=== PATIENT | female | born 1990 | race Caucasian/White ===

== ENCOUNTER 2017-07-16 12:18 | Outpatient (CLI) | payer SELFPAY ==
[~2017-07-16] VITALS: Ht 157.5 cm; Wt 73.7 kg
[2017-07-16 12:58] VITALS: Ht 157.5 cm; Wt 73.7 kg
[2017-07-16] MEDS ORDERED: PREN1.4T2 PO (12:59)
[2017-07-16 14:17] LABS: BASOPHILS % 0.5 % (0.0-2.0); EOSINOPHILS # 0.7 10^3/ul (0.0-0.5); EOSINOPHILS % 7.8 % (0.0-7.0); HEMATOCRIT 39.1 % (37.0-47.0); HEMOGLOBIN 13.4 g/dl (12.0-16.0); LYMPHOCYTES # 1.6 10^3/ul (0.8-2.9); LYMPHOCYTES % 18.2 % (15.0-51.0); MEAN CORPUSCULAR HEMOGLOBIN 29.1 pg (29.0-33.0); MEAN CORPUSCULAR HGB CONC 34.3 g/dl (32.0-37.0); MEAN PLATELET VOLUME 11.3 fl (7.4-10.4); MONOCYTE # 0.5 10^3/ul (0.3-0.9); MONOCYTES % 5.4 % (0.0-11.0); NEUTROPHILS % 67.4 % (39.0-77.0); PLATELET COUNT 146 10^3/UL (140-415); RED CELL DISTRIBUTION WIDTH 14.8 % (11.5-14.5); WHITE BLOOD COUNT 8.9 10^3/ul (4.8-10.8)
[2017-07-16 14:33] LABS: INR 0.85; PROTIME 11.7 Sec (11.9-14.9); PT RATIO 0.9
[2017-07-16 14:34] LABS: PARTIAL THROMBOPLASTIN TIME 26.7 Sec (25.0-35.0)
[2017-07-16 14:37] LABS: ALBUMIN 3.3 g/dl (3.3-4.9); ALBUMIN/GLOBULIN RATIO 1.1; BILIRUBIN,INDIRECT 0.1 mg/dl (0-1.1); BILIRUBIN,TOTAL 0.1 mg/dl (0.2-1.3); CREATININE 1.1 mg/dl (0.44-1.00); POTASSIUM 4.4 mmol/L (3.5-5.1); TOTAL PROTEIN 6.3 g/dl (6.1-8.1); URIC ACID 5.7 mg/dl (3.1-7.9)
[2017-07-16 15:01] LABS: ADD UMIC NO; UR ASCORBIC ACID 20 mg/dL (NEGATIVE); UR BACTERIA FEW /HPF (NONE SEEN); UR BILIRUBIN (Dip) NEGATIVE (NEGATIVE); UR BLOOD (Dip) NEGATIVE (NEGATIVE); UR CLARITY SLIGHTLY CLOUDY (CLEAR); UR COLOR YELLOW (YELLOW); UR GLUCOSE (Dip) NEGATIVE (NEGATIVE); UR KETONES (Dip) NEGATIVE (NEGATIVE); UR LEUKOCYTE ESTERASE (Dip) NEGATIVE Leu/ul (NEGATIVE); UR NITRITE (Dip) NEGATIVE (NEGATIVE); UR RBC 0 /HPF (0-5); UR SPECIFIC GRAVITY (Dip) 1.013 (1.003-1.030); UR SQUAMOUS EPITHELIAL CELL FEW /HPF (FEW); UR TOTAL PROTEIN (Dip) NEGATIVE (NEGATIVE); UR UROBILINOGEN (Dip) NEGATIVE (NEGATIVE)
--- NOTE | 2017-07-16 16:54 | RADRPT ---
PROCEDURE: US OB. CLINICAL INDICATION: Hypertension TECHNIQUE: Multiple sonographic images of the pelvis were obtained. The images were reviewed on a PACS workstation. COMPARISON: No prior studies are available for comparison. FINDINGS: There is a single live intrauterine . Biophysical profile score is as follows: Breathing 2 Movements 2 Tone 2 Fluid volume 2 Amniotic fluid index = 6.7 cm Total biophysical profile score = 8/8 IMPRESSION: Biophysical profile score = 8/8 Borderline oligohydramnios RPTAT: HH .Adam Chavez MD, MD Date Time Electronically viewed and signed by .Adam Chavez MD, MD on 07/16/2017 13:34 .W/
--- NOTE | 2017-07-16 16:54 | RADRPT ---
PROCEDURE: US OB. CLINICAL INDICATION: Hypertension TECHNIQUE: Multiple sonographic images of the pelvis were obtained. The images were reviewed on a PACS workstation. COMPARISON: No prior studies are available for comparison. FINDINGS: There is a single viable intrauterine gestation. Cardiac activity is present with 146 beats per min keiry. There is a to pelvic presentation. Measurements were made in order to determine age. The results are as follows: BPD =unable to measure HC =unable to measure AC =33.05 cm FL =7.17 cm. Estimated gestational age of approximately 36 weeks 6 days. The estimated date of delivery is 08/07/2017 The EFW = 3095 g 31.6% . The placenta is fundal grade 1 to II. There is no evidence for an abruption There is a normal amount of amniotic fluid IMPRESSION: Limited study as the head was to low to do accurate measurements. Single viable intrauterine gestation of approximately 36 weeks 6 days. The estimated date of delive ry is 08/07/2017 . .Adam Chavez MD, MD Date Time Electronically viewed and signed by .Adam Chavez MD, on 07/16/2017 13:33 .W/
--- NOTE | 2017-07-16 16:59 | TRIAGE ---
OB Triage Datetime Report Generated by CPN: 07/16/2017 16:52 Datetime: 07/16/2017 16:01 Stage of : OB Triage Datetime: 07/16/2017 15:50 Labor Evaluation Frequency: 0 Monitor Mode: External Resting Tone [place]: Relaxed Heart Rate FHR Baseline Rate: 145 Monitor Mode: External US Variability: Moderate 6-25 bpm Accelerations: 10X10 Decelerations: None Category: Category I Pain Assessment Pain Scale: 0 Pain Presence: None/Denies Pain Type: N/A Pain Goal: 3 Pain Relief Measures: Comfort Measures Datetime: 07/16/2017 15:00 Labor Evaluation Frequency: OCC Monitor Mode: External Quality: Mild Pattern: Normal: <= 5 Contractions in 10 Minutes Resting Tone [place]: Relaxed Heart Rate FHR Baseline Rate: 150 Monitor Mode: External US FHR Baseline Changes: No Baseline Change Variability: Moderate 6-25 bpm Accelerations: 15X15 Decelerations: None Category: Category I Pain Presence: None/Denies Datetime: 07/16/2017 14:17 Labor Evaluation Frequency: OCC Monitor Mode: External Quality: Mild Pattern: Normal: <= 5 Contractions in 10 Minutes Resting Tone [place]: Relaxed Heart Rate FHR Baseline Rate: 150 Monitor Mode: External US FHR Baseline Changes: No Baseline Change Variability: Moderate 6-25 bpm Accelerations: 15X15 Decelerations: None Category: Category I Pain Presence: None/Denies Datetime: 07/16/2017 13:30 Labor Evaluation Frequency: OCC Monitor Mode: External Quality: Mild Pattern: Normal: <= 5 Contractions in 10 Minutes Resting Tone [place]: Relaxed Heart Rate FHR Baseline Rate: 150 Monitor Mode: External US FHR Baseline Changes: No Baseline Change Variability: Moderate 6-25 bpm Accelerations: 15X15 Decelerations: None Category: Category I Pain Presence: None/Denies Datetime: 07/16/2017 13:00 Stage of : OB Triage Assessment Type: Triage Maternal Assessment Level of Consciousness: Fully Conscious DTR's/Clonus: DTRs 2+; No Clonus Headache: Denies Blurred Vision: No Respiratory Effort: Unlabored; Regular Rhythm; Equal Expansion Breath Sounds, Left: Clear and Equal Breath Sounds, Right: Clear and Equal Nausea/Vomiting: Denies RUQ Epigastric Pain: Denies Lower Extremities Edema: None Degree: None Upper Extremities Edema: None Degree: None Facial Edema: None Temperature Route: Axillary Fall Risk Assessment History of Falling: (0) No Secondary Diagnosis: (0) No Ambulatory Aid: (0) Bedrest/Nurse Assist IV Therapy: (0) No Gait: (0) Normal/Bedrest/Immobile Mental Status: (0) Oriented to Own Ability Fall Score: 0 Fall Risk Score Definition: No Risk: No action required Datetime: 07/01/2017 10:41 Time of Arrival: 07/16/2017 12:15 EGA: 38.2 Arrived By: Ambulatory Arrived From: Office Chief Complaint: ABD RASH, HIGH BP Movement: Present Contractions: Denies/Absent Rupture of Membranes: Denies Vaginal Bleeding: None Vaginal Discharge: Denies Recent Sexual Intercouse: Denies Abdominal Trauma: Not Applicable Patient Complaints: Other Time Provider Notified: 07/16/2017 16:00 Provider Notified: AMBAR Initial Plan: BPP,EFW, PIH PANEL, BILE ACID
--- NOTE | 2017-07-16 20:09 | CONS ---
Date/Time of Note Date/Time of Note DATE: 07/16/17 TIME: 19:56 Consultation Date/Type/Reason Admit Date/Time July 16, 2017 OB triage consult This patient is a 27 years old, 1, para 0 with estimated date of confinement of July 28, 2017, which makes her 38 weeks and 2 days now She was sent for triage consult due to PIH and possible cholestasis as well as abdominal rash. On examination she was well-developed well-nourished lady late term, her abdomen was soft, fairly irregular contraction; every 5-6 minutes. heart tone was normal, with reactive strips, good variability occasional acceleration no evidence of decelerations. On physical examination; there was no true evidence of cholestasis the palm of the hand and sole of the feet and normal color. no true intense itching anywhere. Regarding for possible PIH her blood pressure was 134/82 and about half an hour later with even lower than that. knee-jerk reflex were nicolette, heart tone was 145 bpm. Reason for Consultation Laboratory Tests Test 07/16/17 14:00 07/16/17 14:04 07/16/17 14:30 Sodium Level 136mmol/L Potassium Level 4.4mmol/L Chloride Level 107mmol/L Carbon Dioxide Level 19mmol/L Anion Gap 14 Blood Urea Nitrogen 20mg/dl Creatinine 1.10mg/dl Glucose Level 71mg/dl Uric Acid 5.7mg/dl Calcium Level 9.0mg/dl Total Bilirubin 0.1mg/dl Direct Bilirubin 0.00mg/dl Indirect Bilirubin 0.1mg/dl Aspartate Amino Transf (AST/SGOT) 65IU/L Alanine Aminotransferase (ALT/SGPT) 58IU/L Alkaline Phosphatase 166IU/L Total Protein 6.3g/dl Albumin 3.3g/dl Globulin 3.00g/dl Albumin/Globulin Ratio 1.10 White Blood Count 8.910^3/ul Red Blood Count 4.6010^6/ul Hemoglobin 13.4g/dl Hematocrit 39.1% Mean Corpuscular Volume 85.0fl Mean Corpuscular Hemoglobin 29.1pg Mean Corpuscular Hemoglobin Concent 34.3g/dl Red Cell Distribution Width 14.8% Platelet Count 41188^3/UL Mean Platelet Volume 11.3fl Neutrophils % 67.4% Lymphocytes % 18.2% Monocytes % 5.4% Eosinophils % 7.8% Basophils % 0.5% Nucleated Red Blood Cells % 0.0/100WBC Neutrophils # 6.010^3/ul Lymphocytes # 1.610^3/ul Monocytes # 0.510^3/ul Eosinophils # 0.710^3/ul Basophils # 0.010^3/ul Nucleated Red Blood Cells # 0.010^3/ul Prothrombin Time 11.7Sec Prothrombin Time Ratio 0.9 INR International Normalized Ratio 0.85 Activated Partial Thromboplast Time 26.7Sec Urine Color YELLOW Urine Clarity SLIGHTLY CLOUDY Urine pH 6.0 Urine Specific [place] 1.013 Urine Ketones NEGATIVEmg/dL Urine Nitrite NEGATIVEmg/dL Urine Bilirubin NEGATIVEmg/dL Urine Urobilinogen NEGATIVEmg/dL Urine Leukocyte Esterase NEGATIVELeu/ul Urine Microscopic RBC 0/HPF Urine Microscopic WBC 2/HPF Urine Squamous Epithelial Cells FEW/HPF Urine Bacteria FEW/HPF Urine Hemoglobin NEGATIVEmg/dL Urine Glucose NEGATIVEmg/dL Urine Total Protein NEGATIVEmg/dl Constitutional: No chills, No diaphoresis, No disoriented, No febrile, No improved, No no complaints, No other, No poor po, No requiring IVF, No requiring O2 Eyes: No discharge, No no complaints, No other, No pain, No redness, No visual change ENT: No bleeding, No congestion, No discharge, No dysphagia, No no complaints, No other, No pain, No sore throat Respiratory: No cough, No no complaints, No other, No pain, No pleuritic pain, No shortness of breath, No sputum, No wheezing Cardiovascular: No chest pain, No edema, No lightheadedness, No no complaints, No orthopenea, No other, No palpitations, No paroxysmal nocturnal dyspnea Gastrointestinal: No blood, No constipation, No decreased appetite, No diarrhea , No flatus, No nausea, No no complaints, No other, No pain, No passing stool, No vomiting Genitourinary: other (Due to lack of any contractions pelvic examination was not performed), No bleeding, No discharge, No dysuria, No flank pain, No hematuria, No no complaints Musculoskeletal: other (Knee-jerk reflex were normal), No back pain, No bone/joint pain, No neck pain, No no complaints, No restricted range of motion, No swelling Skin: other (No discoloration no extensive excoriations), No bruising, No erythema, No laceration, No no complaints, No pruritis, No rash, No skin lesions Neurologic: other (Knee-jerk reflex was normal), No confusion, No dizziness, No focal-weakness, No headache, No no complaints , No seizure, No syncope Additional Comments To rule out any major obstetrical problems we ordered laboratory studies as well as ultrasound . her CBC was basically normal with hemoglobin of 13.4 and hematocrit of 39.1 platelet was 146,000 . No proteinuria. On Chem-7 studies; her electrolytes were normal; kidney function tests as well as the liver functions tests were normal. On ultrasound study; the report is a single viable intrauterine gestation with cephalic presentation; heart 146 bpm; estimated weight was 3095 g , which puts her 31.6 percentile . estimated delivery date was August 07, 2017. placenta was fundal grade 1-2 no evidence of abruption Her amniotic fluid index however was 6.7 centimeter. biophysical profile of 03/10. With these finding she will be followed in her clinic and will return if there is any true evidence of cholestasis of or PIH. Patient was recommended to do kick around and return for amniotic fluid index study soon; either tomorrow or the day after. Social History Smoking Status: Never smoker Exam/Review of Systems Results Result Diagram: 07/16/17 1404 07/16/17 1400 Results 24 hrs Laboratory Tests Test 07/16/17 14:00 07/16/17 14:04 07/16/17 14:30 Sodium Level 136 Potassium Level 4.4 Chloride Level 107 Carbon Dioxide Level 19 L Anion Gap 14 Blood Urea Nitrogen 20 Creatinine 1.10 H Glucose Level 71 Uric Acid 5.7 Calcium Level 9.0 Total Bilirubin 0.1 L Direct Bilirubin 0.00 Indirect Bilirubin 0.1 Aspartate Amino Transf (AST/SGOT) 65 H Alanine Aminotransferase (ALT/SGPT) 58 Alkaline Phosphatase 166 H Total Protein 6.3 Albumin 3.3 Globulin 3.00 Albumin/Globulin Ratio 1.10 White Blood Count 8.9 Red Blood Count 4.60 Hemoglobin 13.4 Hematocrit 39.1 Mean Corpuscular Volume 85.0 Mean Corpuscular Hemoglobin 29.1 Mean Corpuscular Hemoglobin Concent 34.3 Red Cell Distribution Width 14.8 H Platelet Count 146 Mean Platelet Volume 11.3 H Neutrophils % 67.4 Lymphocytes % 18.2 Monocytes % 5.4 Eosinophils % 7.8 H Basophils % 0.5 Nucleated Red Blood Cells % 0.0 Neutrophils # 6.0 Lymphocytes # 1.6 Monocytes # 0.5 Eosinophils # 0.7 H Basophils # 0.0 Nucleated Red Blood Cells # 0.0 Prothrombin Time 11.7 L Prothrombin Time Ratio 0.9 INR International Normalized Ratio 0.85 Activated Partial Thromboplast Time 26.7 Urine Color YELLOW Urine Clarity SLIGHTLY CLOUDY A Urine pH 6.0 Urine Specific [place] 1.013 Urine Ketones NEGATIVE Urine Nitrite NEGATIVE Urine Bilirubin NEGATIVE Urine Urobilinogen NEGATIVE Urine Leukocyte Esterase NEGATIVE Urine Microscopic RBC 0 Urine Microscopic WBC 2 Urine Squamous Epithelial Cells FEW Urine Bacteria FEW A Urine Hemoglobin NEGATIVE Urine Glucose NEGATIVE Urine Total Protein NEGATIVE LISA VILLALTA MD Jul 16, 2017 20:08
== END 2017-07-16 16:20 | disposition home or self-care (01) ==
LOC: OBT 12:18 → L-D 12:22 → OBT 16:20
PROVIDERS: ATTEND Obstetrics & Gynecology
DX: O62.9 Abnormality of forces of labor, unspecified (principal); Z3A.38 38 weeks gestation of pregnancy
CPT/HCPCS: 76815; 76818; 80053; 81001; 81003; 83789; 84560; 85025; 85610; 85730; G0463

== ENCOUNTER 2017-07-17 13:48 | Inpatient (IN) | payer MEDICAID ==
[~2017-07-17] VITALS: Ht 157.5 cm; Wt 73.7 kg
[~2017-07-17 13:48] MED LIST: PREN1.4T2 PO
[2017-07-17 14:14] VITALS: BP 130/88; PULSE 74; RESP 18
--- NOTE | 2017-07-17 15:22 | RADRPT ---
PROCEDURE: US OB. CLINICAL INDICATION: Low amniotic fluid index TECHNIQUE: Multiple sonographic images of the pelvis were obtained. The images were reviewed on a PACS workstation. COMPARISON: 07/16/2017 FINDINGS: There is a single live intrauterine . cardiac activity is identified at a rate of 14 8 beats per minute. presentation is cephalic. Placenta is fundal grade II to III Biophysical profile score is as follows: Breathing 2 Movements 2 Tone 2 Fluid volume 2 Amniotic fluid index = 10.4 cm Total biophysical profile score = 8/8 IMPRESSION: Biophysical profile score = 8/8 RPTAT: HH .Adam Chavez MD, Date Time Electronically viewed and signed by .Adam Chavez MD, MD on 07/17/2017 15:22 .W/
--- NOTE | 2017-07-17 17:30 | TRIAGE ---
OB Triage Datetime Report Generated by CPN: 07/17/2017 17:30 Datetime: 07/17/2017 17:10 Stage of : Labor Headache: Denies Blurred Vision: No RUQ Epigastric Pain: Denies Facial Edema: None Frequency: none Pattern: Normal: <= 5 Contractions in 10 Minutes Resting Tone [place]: Relaxed FHR Baseline Rate: 140 Monitor Mode: External US FHR Baseline Changes: No Baseline Change Variability: Moderate 6-25 bpm Accelerations: 15X15 Decelerations: None Category: Category I Pain Presence: None/Denies Membrane Status: Intact Datetime: 07/17/2017 16:43 Dilatation (cms): 0.0 Effacement (%): 50 Exam By: DR. SCHAFFER Datetime: 07/17/2017 16:35 Frequency: 2-14 Monitor Mode: External Duration (sec)2399: 60-100 Quality: Mild Pattern: Normal: <= 5 Contractions in 10 Minutes Resting Tone [place]: Relaxed FHR Baseline Rate: 135 Monitor Mode: External US FHR Baseline Changes: No Baseline Change Variability: Moderate 6-25 bpm Accelerations: 15X15 Decelerations: None Datetime: 07/17/2017 15:21 Level of Consciousness: Fully Conscious Headache: Denies Blurred Vision: No Nausea/Vomiting: Denies RUQ Epigastric Pain: Denies Facial Edema: None Frequency: 3-12 Monitor Mode: External Duration (sec)2399: 40-120 Quality: Mild Pattern: Normal: <= 5 Contractions in 10 Minutes Resting Tone [place]: Relaxed Contraction Comments: PT REPORTS NOT FEELING CTX FHR Baseline Rate: 140 Monitor Mode: External US FHR Baseline Changes: No Baseline Change Variability: Moderate 6-25 bpm Accelerations: 15X15 Decelerations: None Pain Scale: 0 Pain Presence: None/Denies Pain Type: N/A Datetime: 07/17/2017 14:16 Quality: Mild Contraction Comments: MILD TO PALPATION; PT REPORTS NOT FEELING CTX, DENIES PAIN. Datetime: 07/17/2017 14:03 Time of Arrival: 07/17/2017 13:46 EGA: 38.3 Arrived By: Ambulatory Arrived From: Home Chief Complaint: FOLLOW UP VISIT FROM 07/16/17, FOR REPEAT NST/BPP DUE TO LOW JIMENA (6.7CM) Movement: Present Contractions: Denies/Absent Rupture of Membranes: Denies Vaginal Bleeding: None Vaginal Discharge: Denies Abdominal Trauma: Not Applicable Patient Complaints: Other Additional Patient Complaints: PT'S ABDOMEN COVERED WITH RASH; PT STATES IT STARTED THURSDAY, , AND THAT SHE WAS SEEN HERE YESTERDAY FOR IT. PT STATES THAT IT MIGHT BE AN ALLERGIC REACTION. Time Provider Notified: 07/17/2017 16:51 Provider Notified: DR Schaffer Initial Plan: EFM x2, BPP Datetime: 07/17/2017 14:00 Stage of : OB Triage Assessment Type: Triage Level of Consciousness: Fully Conscious Headache: Denies Blurred Vision: No Respiratory Effort: Unlabored; Regular Rhythm; Equal Expansion Breath Sounds, Left: Clear and Equal Breath Sounds, Right: Clear and Equal Nausea/Vomiting: Denies RUQ Epigastric Pain: Denies Lower Extremities Edema: None Degree: None Upper Extremities Edema: None Degree: None Facial Edema: None Temperature Route: Oral History of Falling: (0) No Secondary Diagnosis: (0) No Ambulatory Aid: (0) Bedrest/Nurse Assist IV Therapy: (0) No Gait: (0) Normal/Bedrest/Immobile Mental Status: (0) Oriented to Own Ability Fall Score: 0 Fall Risk Score Definition: No Risk: No action required Pain Scale: 0 Pain Presence: None/Denies Pain Type: N/A
[2017-07-17] MEDS ORDERED: METHYLERGONOVINE 0.2 MG INJ IM PRN (18:00)
[2017-07-17] MEDS ORDERED: OXYTOCIN 30 UNITS/LR 500 ML IV PRN (18:00)
[2017-07-17] MEDS ORDERED: BUTORPHANOL 2 MG INJ IV PRN (18:00)
[2017-07-17] MEDS ORDERED: DINOPROSTONE 10 MG VAG SUPP VAG ONE (18:00)
[2017-07-17] MEDS ORDERED: IBUPROFEN 600 MG TAB PO PRN (18:00)
[2017-07-17] MEDS ORDERED: CARBOPROST 250 MCG INJ IM PRN (18:00)
[2017-07-17] MEDS ORDERED: MISOPROSTOL 200 MCG TAB PR PRN (18:00)
[2017-07-17] MEDS ORDERED: HYDROCODONE/APAP (5/325) TAB PO PRN (18:00)
[2017-07-17] MEDS ORDERED: OXYTOCIN 30 UNITS/LR 500 ML IV SCH (18:00)
[2017-07-17] MEDS ORDERED: LIDOCAINE 1% (MPF) 30 ML INJ INJ PRN (18:00)
[2017-07-17] MEDS: LACTATED RINGER'S 1,000 ML IV SCH (18:11)
[2017-07-17 18:12] LABS: BASOPHILS % 0.3 % (0.0-2.0); EOSINOPHILS # 0.8 10^3/ul (0.0-0.5); EOSINOPHILS % 8.4 % (0.0-7.0); HEMATOCRIT 39.9 % (37.0-47.0); HEMOGLOBIN 13.9 g/dl (12.0-16.0); LYMPHOCYTES # 2.1 10^3/ul (0.8-2.9); MEAN CORPUSCULAR HEMOGLOBIN 29.3 pg (29.0-33.0); MEAN CORPUSCULAR HGB CONC 34.8 g/dl (32.0-37.0); MEAN CORPUSCULAR VOLUME 84.2 fl (82.0-101.0); MONOCYTE # 0.5 10^3/ul (0.3-0.9); MONOCYTES % 4.9 % (0.0-11.0); NEUTROPHILS % 63.7 % (39.0-77.0); PLATELET COUNT 152 10^3/UL (140-415); RED BLOOD COUNT 4.74 10^6/ul (4.20-5.40); RED CELL DISTRIBUTION WIDTH 15.1 % (11.5-14.5); WHITE BLOOD COUNT 9.5 10^3/ul (4.8-10.8)
[2017-07-17 18:27] LABS: INR 0.88; PT RATIO 0.9
[2017-07-17 18:28] LABS: PARTIAL THROMBOPLASTIN TIME 27.7 Sec (25.0-35.0)
[2017-07-17] MEDS: URSODIOL 300 MG CAP PO SCH (21:20)
[2017-07-18] MEDS: LACTATED RINGER'S 1,000 ML IV SCH ×3 (00:54→07:57)
[2017-07-18] MEDS ORDERED: DINOPROSTONE 10 MG VAG SUPP VAG ONE (04:30)
[2017-07-18] MEDS ORDERED: DIPHENHYDRAMINE 50 MG INJ IV PRN (06:00)
[2017-07-18] MEDS ORDERED: EPHEDrine SULFATE 50 MG/5 ML SYG IV PRN (06:00)
[2017-07-18] MEDS ORDERED: NALOXONE (0.4 MG/ML) INJ IV PRN (06:00)
[2017-07-18] MEDS ORDERED: FENTAnyl 2MCG/ML-ROPIV 0.2% 100 ML BAG EPI SCH (06:00)
[2017-07-18] MEDS ORDERED: ONDANSETRON 4 MG INJ IV PRN ×2 (06:00→16:30)
[2017-07-18] MEDS: URSODIOL 300 MG CAP PO SCH ×3 (09:56→20:44)
[2017-07-18] MEDS: OXYTOCIN 30 UNITS/LR 500 ML IV SCH ×2 (11:24→13:04)
--- NOTE | 2017-07-18 12:55 | LDN ---
Date/Time of Note Date/Time of Note DATE: 07/18/17 TIME: 12:52 Delivery Summary Normal spontaneous vaginal delivery of a baby girl from OA position shoulders delivered without difficulty rest of the baby's body followed. Cord clamped after stopped pulsation. Placenta is spontaneous expulsion inspected complete. Patient sustained small first-degree perineal laceration repaired with 2-0 chromic catgut estimated blood loss 200-250 cc. Weeks of Gestation 38 weeks 4 day Placenta Delivered: Spontaneously Meconium: none Episiotomy: No Laceration repair: First-degree perineal laceration repaired with 2-0 chromic catgut Anesthesia type: Epidural Sponge & Needle done & correct: Yes All needle counts correct: Yes Any foreign bodies felt in the: No Problems: Delivery Information Sex Infant Sex: female Apgars 1 Minute: 8 5 Minute: 9 Suctioning Nose & mouth suctioned at sharan: Yes Delee suction performed: No Umbilical Cord Cord presentations: nuchal cord Nuchal cord present X: 1 Cord Blood was obtained: Yes RADHA SCHAFFER MD Jul 18, 2017 12:55
--- NOTE | 2017-07-18 13:14 | HP ---
Date/Time of Note Date/Time of Note DATE: 07/18/17 TIME: 13:02 OB - History Hx of Present Free Text/Dictation 18 years old female EDC July 28, 2017 admitted to [facility] for induction of labor due to low JIMENA. Mild PIH suspected cholestasis of . Chief Complaint: 38 weeks 4 days admitted for induction of labor due to low JIMENA , PIH Estimated Due Date: Jul 28, 2017 : 1 Para: 0 Care: Good Care Ultrasounds: Normal mid trimester US Obstetrical Complications: Pre-eclampsia Past Family/Social History * Past Medical, Surgical, Family and Obstetric Histories reviewed from chart. Rubella: immune RPR/VDRL: Negative GBS Status: Negative HBsAG: Negative OB Admission Exam Vital Signs Vital Signs Vital Signs Date Time Temp Pulse Resp B/P Pulse Ox O2 Delivery O2 Flow Rate FiO2 07/17/17 14:14 98.6 74 18 130/88 97 Room Air Physical Exam HEENT: WNL Heart: Rhythm Normal Lungs: Clear, Equal Abdomen: WNL Extremities: Normal Cervical Dilatation: None Effacement: 25% Membranes: Intact Heart Rate: 130's Accelerations: Accelerations Present Decelerations: No Decelerations Varibility: Moderate Contractions on Admission: None Last 72 hours Lab Results CBC & BMP 07/17/17 17:30 OB Assessment/Plan Reason for admission: other (Oligohydramnios. Mild PIH. Perinatologist recommended delivery) Other plan: 26 years old female EDC July 28 2070 admitted for induction of labor due to oligohydramnios mild PIH none confirmed cholestasis of . Plan of Cervidil induction follow with Pitocin IV infusion discussed with the patient pros and cons explained to her she would like to proceed with induction. RADHA SCHAFFER MD Jul 18, 2017 13:13
[2017-07-18 16:00] VITALS: BP 128/82; PULSE 89; RESP 18
[2017-07-18] MEDS ORDERED: OXYTOCIN 30 UNITS/LR 500 ML IV SCH (16:03)
[2017-07-18 16:30] VITALS: BP 125/83; PULSE 85; RESP 18
[2017-07-18] MEDS ORDERED: HYDROCODONE/APAP (5/325) TAB PO PRN (16:30)
[2017-07-18] MEDS ORDERED: OXYCODONE/ASPIRIN (4.88/325) TAB PO PRN ×2 (16:30)
[2017-07-18] MEDS ORDERED: DIBUCAINE 1% 30 GM OINT PR PRN (16:30)
[2017-07-18] MEDS ORDERED: ACETAMINOPHEN 325 MG TAB PO PRN (16:30)
[2017-07-18] MEDS ORDERED: LANOLIN 7 GM TUBE TOP PRN (16:30)
[2017-07-18] MEDS ORDERED: BENZOCAINE 20% 56 ML SPRAY TOP PRN (16:30)
[2017-07-18] MEDS ORDERED: WITCH HAZEL/GLYCERIN PAD PR PRN (16:30)
[2017-07-18] MEDS: IBUPROFEN 600 MG TAB PO SCH (17:10)
[2017-07-18 19:40] VITALS: BP 135/83; PULSE 80; RESP 19
[2017-07-18] MEDS: SENNA/DOCUSATE NA (8.6MG/50MG) TAB PO SCH (20:44)
[2017-07-19] MEDS: IBUPROFEN 600 MG TAB PO SCH ×4 (00:17→17:29)
[2017-07-19 04:15] VITALS: BP 130/62; PULSE 82; RESP 18
[2017-07-19 07:45] VITALS: BP 127/78; PULSE 78; RESP 19
[2017-07-19] MEDS: SENNA/DOCUSATE NA (8.6MG/50MG) TAB PO SCH ×2 (08:54→21:34)
[2017-07-19] MEDS: URSODIOL 300 MG CAP PO SCH ×3 (08:54→21:34)
[2017-07-19 09:16] LABS: BASOPHIL # 0.1 10^3/ul (0.0-0.1); BASOPHILS % 0.3 % (0.0-2.0); EOSINOPHILS # 0.8 10^3/ul (0.0-0.5); EOSINOPHILS % 4.9 % (0.0-7.0); HEMATOCRIT 34.6 % (37.0-47.0); HEMOGLOBIN 11.8 g/dl (12.0-16.0); LYMPHOCYTES # 2.6 10^3/ul (0.8-2.9); MEAN CORPUSCULAR HEMOGLOBIN 29.4 pg (29.0-33.0); MEAN CORPUSCULAR HGB CONC 34.1 g/dl (32.0-37.0); MEAN CORPUSCULAR VOLUME 86.1 fl (82.0-101.0); MONOCYTE # 0.6 10^3/ul (0.3-0.9); MONOCYTES % 3.6 % (0.0-11.0); NEUTROPHIL # 12.1 10^3/ul (1.6-7.5); NEUTROPHILS % 74.6 % (39.0-77.0); RED BLOOD COUNT 4.02 10^6/ul (4.20-5.40); RED CELL DISTRIBUTION WIDTH 15.2 % (11.5-14.5); WHITE BLOOD COUNT 16.3 10^3/ul (4.8-10.8)
[2017-07-19 09:58] LABS: PLATELET COUNT 134 10^3/UL (140-415)
[2017-07-19] MEDS ORDERED: INFLUENZA VIRUS VACCINE 0.5 ML SYG IM* ONE (11:00)
--- NOTE | 2017-07-19 11:51 | QN ---
Documentation Comment Post normal vaginal delivery day 1 Afebrile Vital signs are stable. Abdomen soft. Uterus firm. Lochia normal. Extremity normal. RADHA SCHAFFER MD Jul 19, 2017 11:51
[2017-07-19 15:50] VITALS: BP 135/85; RESP 16
[2017-07-19 20:00] VITALS: BP 129/79; PULSE 84; RESP 18
[2017-07-20] MEDS: IBUPROFEN 600 MG TAB PO SCH ×4 (00:12→13:12)
[2017-07-20 05:08] VITALS: BP 118/82; PULSE 84; RESP 19
[2017-07-20 08:00] VITALS: BP 132/89; PULSE 76; RESP 18
[2017-07-20] MEDS: URSODIOL 300 MG CAP PO SCH ×2 (08:50→13:12)
[2017-07-20] MEDS: SENNA/DOCUSATE NA (8.6MG/50MG) TAB PO SCH (08:50)
[2017-07-20] MEDS ORDERED: MEASLES,MUMPS,RUBELLA VACCINE INJ SC* ONE (09:00)
--- NOTE | 2017-07-20 13:15 | PD.PPDC ---
[employer] Discharge Instruction Condition Patient Condition: Good Diet Diet: Resume Regular Diet Activity/Restrictions Activity: Normal Activity May Shower Restrictions: No Exercising No Lifting No Driving No Sexual Activity Nothing in the Vagina No [place] No Tampons, douche Wound/Drain Care Instructions Wound/Drain Care Instructions: Wash with soap and water Keep clean and dry Follow-up Follow-up with Physician: 2, Week/Weeks Provider Information: instructions given recommended to make appointment to be seen at the clinic in 2 weeks Return to clinic for [employer] Instructions: Fever greater than 101 Chills Worsening abdominal pain Excessive Vaginal Bleeding More than 2 pads per hour Unable to tolerate diet RADHA SCHAFFER MD Jul 20, 2017 13:15
--- NOTE | 2017-07-20 13:18 | DS ---
Date/Time of Note Date/Time of Note DATE: 07/20/17 TIME: 13:16 Discharge Summary Admission/Discharge Info Admit Date/Time Jul 17, 2017 at 17:00 Discharge Date/Time July 20, 2017 at 1300 Discharge Diagnosis Post normal vaginal delivery day 2 Patient Condition: Good Consults None Procedures Normal vaginal delivery Hx of Present Illness in labor Hospital Course Satisfactory uneventful Home Meds Reported Medications Comb No.42/Folic Acid (Prena1 Chew Tablet) 1.4 Mg Tab.ch.bph, 1.4 MG PO DAILY, TAB 07/16/17 Follow-up Plan instruction given recommended to make appointment to be seen at the clinic in 2 weeks Primary Care Provider Care Physician No Primary Time spent on discharge: < 30 minutes RADHA SCHAFFER MD Jul 20, 2017 13:18
== END 2017-07-20 15:30 | disposition home or self-care (01) | DRG 775 ==
LOC: OBT 13:48 → L-D 13:48 → OBT 17:00 → L-D 17:00 → PP1 07-18 16:15
PROVIDERS: ADMIT Obstetrics & Gynecology; ATTEND Obstetrics & Gynecology
PROC: 3E0P7VZ Introduction of Hormone into Female Reproductive, Via Natural or Artificial Opening (ICD-10-PCS; 2017-07-17)
PROC: 10E0XZZ Delivery of Products of Conception, External Approach (ICD-10-PCS; principal; 2017-07-18)
PROC: 0HQ9XZZ Repair Perineum Skin, External Approach (ICD-10-PCS; 2017-07-18)
DX: O41.03X0 Oligohydramnios, third trimester, not applicable or unspecified (principal); O70.0 First degree perineal laceration during delivery; O13.4 Gestational [pregnancy-induced] hypertension without significant proteinuria, complicating childbirth; Z37.0 Single live birth; Z3A.38 38 weeks gestation of pregnancy
CPT/HCPCS: 62319; 76818; 85025; 85610; 85730; 86592; 86900; 86901; 90686; 99464; G0463; J0595; J2590; J3010; J7120